=== PATIENT | male | born 2000 | race Caucasian/White ===

== ENCOUNTER 2024-09-21 20:09 | Emergency (ER) | payer SELFPAY ==
[~2024-09-21] VITALS: Ht 170.2 cm; Wt 63.0 kg
[2024-09-21 20:33] VITALS: O2SAT 100
[2024-09-21] MEDS ORDERED: TETANUS, DIPHTHERIA, PERTUSSIS VAC/PF 0.5ML (>10YR OLD) IM ONE (22:45)
[2024-09-22] MEDS: BACITRACIN ZINC OINT UDPKT TOP ONE
[2024-09-22] MEDS: TETANUS, DIPHTHERIA, PERTUSSIS VAC/PF 0.5ML (>10YR OLD) IM ONE
[2024-09-22] MEDS: LIDOCAINE HCL/PF 1% 10 MG/ML 5ML VIAL INFIL ONE (00:01)
[2024-09-22] MEDS: BACITRACIN ZINC OINT UDPKT TOP NR (00:01)
[2024-09-22 00:05] VITALS: BP 124/78; PULSE 81; RESP 20; TEMP 36.66960; O2SAT 100
[2024-09-22] MEDS: LIDOCAINE HCL/PF 1% 10 MG/ML 5ML VIAL INFIL NR (00:06)
== END 2024-09-22 00:30 | disposition home or self-care (01) ==
LOC: ER 20:09
DX: S61.210A Laceration without foreign body of right index finger without damage to nail, initial encounter (principal); W26.0XXA Contact with knife, initial encounter; Y93.89 Activity, other specified; Y92.89 Other specified places as the place of occurrence of the external cause; Y99.8 Other external cause status
CPT/HCPCS: 99282; 12002; J3490